=== PATIENT | female | born 1995 | race Caucasian/White ===

== ENCOUNTER → 2025-02-25 07:20 | Outpatient (REF) | payer BC, SELFPAY ==
[2025-02-25 09:29] LABS: FSH 5.0 mIU/ml
[2025-02-25 09:44] LABS: Cortisol, Random 14.4 ug/dl
== END ==
LOC: REG 07:20
PROVIDERS: ATTENDING PHYSICIAN Nurse Practitioner Family; FAMILY PHYSICIAN Internal Medicine
DX: N92.6 Irregular menstruation, unspecified (principal)
CPT/HCPCS: 36415; 82024; 82533; 83001; 83002; 84144

== ENCOUNTER → 2025-03-01 06:56 | Outpatient (REF) | payer BC, SELFPAY ==
[2025-03-01 08:25] LABS: Vitamin D, 25-OH*** 45.8 ng/mL (30-80)
[2025-03-01 08:40] LABS: Cortisol, Random 14.2 ug/dl
== END ==
LOC: REG 06:56
PROVIDERS: ATTENDING PHYSICIAN Nurse Practitioner Family; FAMILY PHYSICIAN Internal Medicine
DX: N92.6 Irregular menstruation, unspecified (principal)
CPT/HCPCS: 36415; 82306; 82533; 84144; 84443

== ENCOUNTER → 2025-05-17 08:49 | Outpatient (REF) | payer BC, SELFPAY | LOC: RAD 08:49 | PROVIDERS: ATTENDING PHYSICIAN Nurse Practitioner | DX: N92.6 Irregular menstruation, unspecified (principal) | CPT/HCPCS: 76830; 76856 ==